=== PATIENT | female | born 1990 | race Caucasian/White ===

== ENCOUNTER 2018-06-24 22:49 | Emergency (ER) | payer OTHER ==
[~2018-06-24] VITALS: Ht 162.6 cm; Wt 51.3 kg
[2018-06-25] MEDS ORDERED: CEFUROXIME500 MG PO (01:22)
[2018-06-25] MEDS ORDERED: ORASEP SPRAY30 ML MM (01:22)
== END 2018-06-25 01:33 | disposition home or self-care (01) ==
LOC: ER 22:49
DX: J02.9 Acute pharyngitis, unspecified (principal)

== ENCOUNTER 2020-03-23 20:31 | Emergency (ER) | payer OTHER ==
[~2020-03-23] VITALS: Ht 162.6 cm; Wt 52.2 kg
[~2020-03-23 20:31] MED LIST: CEFUROXIME500 MG PO; ORASEP SPRAY30 ML MM
== END 2020-03-23 21:52 | disposition home or self-care (01) ==
LOC: ER 20:31
DX: S01.02XA Laceration with foreign body of scalp, initial encounter (principal); W22.8XXA Striking against or struck by other objects, initial encounter; Y93.89 Activity, other specified; Y92.413 State road as the place of occurrence of the external cause; Y99.8 Other external cause status

== ENCOUNTER 2020-03-29 18:23 | Emergency (ER) | payer OTHER ==
[~2020-03-29] VITALS: Ht 162.6 cm; Wt 52.2 kg
== END 2020-03-29 19:24 | disposition home or self-care (01) ==
LOC: ER 18:23
DX: Z48.02 Encounter for removal of sutures (principal)

== ENCOUNTER 2023-05-26 01:59 | Emergency (ER) | payer OTHER ==
[~2023-05-26] VITALS: Ht 162.6 cm; Wt 54.4 kg
[2023-05-26] MEDS ORDERED: ALPRAZOLAM ODT1 MG PO (02:13)
[2023-05-26 03:56] LABS: HEMATOCRIT 40.4 % (36.0-45.00); HEMOGLOBIN 13.7 g/dL (12.0-15.00); MEAN CELL VOLUME 79.9 fL (80.00-100.00); MEAN CORPUSCULAR HGB CONC 33.8 g/dl (32.0-36.0); PLATELET COUNT 363 K/uL (150-450); RED BLOOD COUNT 5.06 M/uL (4.00-6.00); RED CELL DISTRIBUTION WIDTH 13.6 % (11.5-14.5)
[2023-05-26] MEDS ORDERED: ZYNCOF 20-400120 ML PO (04:52)
[2023-05-26] MEDS ORDERED: PHENAGIL TABLE1 EACH PO (04:52)
== END 2023-05-26 04:55 | disposition home or self-care (01) ==
LOC: ER 01:59
PROVIDERS: General Practice
DX: B34.9 Viral infection, unspecified (principal); Z20.822 Contact with and (suspected) exposure to COVID-19